=== PATIENT | male | born 1970 | race Caucasian/White ===

== ENCOUNTER → 2017-05-22 | Outpatient (CLI) | payer OTHER ==
[~2017-05-22] MED LIST: A/B OTIC15 ML; CAR60 PO; COZ50 PO; COZAAR100 MG PO; CRESTOR40 M1 PO; DEPO-TESTOS200 MG/ML IM; ECO81 PO; FENOFIBRATE MI134 MG PO; LOP50 PO; LUNESTA2 M1 PO; METOPROLOL SUC200 M2 PO
[2017-05-22 10:58] LABS: BASOPHIL % 0.6 % (0-2); PLATELET COUNT 290 x10^3mcL (130-400); RED CELL DISTRIBUTION WIDTH 13.9 % (11.5-14.5)
[2017-05-22 11:19] LABS: CALCIUM 9.4 mg/dL (8.5-10.1); CARBON DIOXIDE 30.6 mmol/L (21-32); CREATININE SERUM 1.5 mg/dL (0.7-1.3); POTASSIUM SERUM 4.3 mmol/L (3.5-5.1)
[2017-05-22 11:23] LABS: CHOLESTEROL/HDL RATIO 7.7
== END | disposition home or self-care (01) ==
LOC: RD 09:04
PROVIDERS: Family Medicine
DX: Z01.818 Encounter for other preprocedural examination (principal)
CPT/HCPCS: 84402; 84403

== ENCOUNTER → 2017-09-25 | Outpatient (CLI) | payer OTHER ==
[2017-09-25 07:37] LABS: BASOPHIL % 0.5 % (0-2); PLATELET COUNT 331 x10^3mcL (130-400); RED CELL DISTRIBUTION WIDTH 14.2 % (11.5-14.5)
[2017-09-25 07:57] LABS: ALBUMIN 4.4 g/dL (3.4-5.0); BILIRUBIN TOTAL 0.49 mg/dL (0.20-1.00); CALCIUM 9.3 mg/dL (8.5-10.1); CARBON DIOXIDE 27.9 mmol/L (21-32); CREATININE SERUM 1.6 mg/dL (0.7-1.3); POTASSIUM SERUM 3.7 mmol/L (3.5-5.1)
[2017-09-25 08:01] LABS: FREE T4 1.02 ng/dL (0.76-1.46); FREE THYROXINE INDEX 2.8 ug/dL (1.4-4.5); T4(THYROXINE) 8.1 ug/dL (4.7-13.3)
[2017-09-25 08:02] LABS: CHOLESTEROL/HDL RATIO 10.7; TOTAL PROTEIN, SERUM 8.6 g/dL (6.4-8.2)
[2017-09-25 08:11] LABS: T3 TOTAL 1.09 ng/mL
== END | disposition home or self-care (01) ==
LOC: LB 06:50
PROVIDERS: Family Medicine
DX: Z00.00 Encounter for general adult medical examination without abnormal findings (principal)
CPT/HCPCS: 82652; 84402; 84403; 84439

== ENCOUNTER → 2017-10-09 | Outpatient (CLI) | payer OTHER | END | disposition home or self-care (01) | LOC: CT 10:34 | PROC: BW21ZZZ Computerized Tomography (CT Scan) of Abdomen and Pelvis (ICD-10-PCS; principal; 2017-10-09) | DX: M54.9 Dorsalgia, unspecified (principal) ==

== ENCOUNTER → 2017-12-25 | Outpatient (CLI) | payer OTHER ==
[2017-12-25 09:24] LABS: BASOPHIL % 0.7 % (0-2); PLATELET COUNT 312 x10^3mcL (130-400)
[2017-12-25 09:45] LABS: ALBUMIN 4.4 g/dL (3.4-5.0); BILIRUBIN TOTAL 0.9 mg/dL (0.20-1.00); CARBON DIOXIDE 29.8 mmol/L (21-32); CREATININE SERUM 1.4 mg/dL (0.7-1.3); POTASSIUM SERUM 3.8 mmol/L (3.5-5.1)
[2017-12-25 09:50] LABS: CHOLESTEROL/HDL RATIO 8.9
[2017-12-25 10:57] LABS: T3 TOTAL 1.09 ng/mL
[2017-12-25 12:45] LABS: FREE T4 0.85 ng/dL (0.76-1.46); FREE THYROXINE INDEX 2.5 ug/dL (1.4-4.5); T4(THYROXINE) 6.7 ug/dL (4.7-13.3)
[2017-12-26 19:52] LABS: CREATININE SERUM 1.4 mg/dL (0.7-1.3); CREATININE UR 101.5 mg/dL
== END | disposition home or self-care (01) ==
LOC: RD 08:37 → CT 08:39 → EDSTATUS 10:55
PROVIDERS: Family Medicine
PROC: BW21ZZZ Computerized Tomography (CT Scan) of Abdomen and Pelvis (ICD-10-PCS; principal; 2017-12-25)
DX: N18.3 Chronic kidney disease, stage 3 (moderate) (principal); E29.1 Testicular hypofunction
CPT/HCPCS: 84403; 84439